=== PATIENT | female | born 1935 ===

== ENCOUNTER 2017-04-29 11:09 | Observation (INO) | payer MEDICARE, OTHER ==
[2017-04-29 11:10] VITALS: BMI 28.5
[2017-04-29] MEDS ORDERED: Albuterol-Ipratrop 3 mg / 0.5 (3 ml) UD ONE ×2 (11:27→13:37)
[2017-04-29] MEDS ORDERED: Albuterol-Ipratrop 3 mg / 0.5 (3 ml) UD INH STA ×2 (11:29→13:09)
--- NOTE | 2017-04-29 12:00 | C.PDOC ---
History Of Present Illness 81 y/o female with PMHx of Asthma, HTN, DM and Anxiety presents to ED with complaints of asthma exacerbation for 1 week with associated cough, mild throat pain, congestion and sob worse at night. Patient reports she is compliant with medication and denies fever, chest pain, abdominal pain, nausea, vomiting or any other complaints. Time Seen by Provider: 04/29/17 11:26 Chief Complaint (Nursing): Cough, Cold, Congestion History Per: Patient History/Exam Limitations: no limitations Onset/Duration Of Symptoms: Days Current Symptoms Are (Timing): Still Present Associated Symptoms: Cough, URI Past Medical History Reviewed: Historical Data, Nursing Documentation, Vital Signs Vital Signs: Last Vital Signs Temp 99.3 F 04/29/17 11:18 Pulse 86 04/29/17 11:18 Resp 24 04/29/17 11:18 BP 165/76 H 04/29/17 11:18 Pulse Ox 96 04/29/17 12:28 - Medical History PMH: Anxiety, Asthma, CHF (EF 40% per cardiac cath 02/2014), COPD, HTN, Hypercholesterolemia Surgical History: Tonsillectomy - [facility] Procedures CORONAR ARTERIOGR-2 CATH (12/03/13) LEFT HEART CARDIAC CATH (12/03/13) LT HEART ANGIOCARDIOGRAM (12/03/13) NEBULIZER THERAPY (12/08/13) Family History: States: No Known Family Hx - Social History Hx Tobacco Use: No Hx Alcohol Use: No Hx Substance Use: No - Immunization History Hx Tetanus Toxoid Vaccination: No Hx Influenza Vaccination: No Hx Pneumococcal Vaccination: Yes Review Of Systems Constitutional: Negative for: Fever, Chills ENT: Positive for: Nose Congestion, Throat Pain Respiratory: Positive for: Cough, Shortness of Breath Gastrointestinal: Negative for: Nausea, Vomiting, Abdominal Pain Skin: Negative for: Rash Physical Exam - Physical Exam Additional Physical Exam Comments: Patient evaluated after x1 neb treatment Constitutional: No acute distress. Anxious Appearing Head: Normocephalic. Atraumatic. Eyes: PERRL. EOMI. ENT: Moist mucous membranes. Neck: Supple. Cardiovascular: Regular rate and rhythm. DP pulse 2+ Chest: No tenderness. Respiratory: Expiratory wheezing GI: Soft. Nontender. Nondistended. Normoactive bowel sounds. No rebound. No guarding. Back: No CVA and no mid-line tenderness. Musculoskeletal: No tenderness or swelling of extremities. No pedal edema. No calf tenderness Skin: No rash. Neurologic: Alert, Speaking in full sentences. No focal deficits ED Course And Treatment - Laboratory Results Result Diagrams: 04/29/17 12:15 04/29/17 12:15 O2 Sat by Pulse Oximetry: 96 (RA) Pulse Ox Interpretation: Normal Medical Decision Making Medical Decision Making: As per home care attendant patient anxious at baseline worse when not feeling well, consistent with behavior at ED today when evaluated. Plan: Influenza Test, Blood work, CXR, ECG, Neb treatment [address] Rojas, will admit to her service. Disposition Discussed With .: Jarocho Rojas Doctor Will See Patient In The: Hospital - Disposition Disposition Time: 14:07 Condition: STABLE Forms: [facility] (Belgian) - Clinical Impression Clinical Impression: COPD exacerbation - PA / UNDERWRITING MANAGER / Resident Statement MD/DO has reviewed & agrees with the documentation as recorded. - Scribe Statement The provider has reviewed the documentation as recorded by the Scribbernadette Rhodes All medical record entries made by the Demarcusibbernadette were at my direction and personally dictated by me. I have reviewed the chart and agree that the record accurately reflects my personal performance of the history, physical exam, medical decision making, and the department course for this patient. I have also personally directed, reviewed, and agree with the discharge instructions and disposition.
[2017-04-29 12:18] LABS: BASO # 0.1 K/uL (0.0-0.2); BASO % 0.8 % (0.0-2.0); EOS # 0.2 K/uL (0.0-0.7); EOS % 2.4 % (0.0-4.0); HEMATOCRIT 31.6 % (34.0-47.0); LYMPH # 1.7 K/uL (1.0-4.3); LYMPH % 20.2 % (20.0-40.0); MEAN CELL VOLUME 79.4 fL (81.0-99.0); MEAN CORPUSCULAR HEMOGLOBIN 26.1 pg (27.0-31.0); MEAN CORPUSCULAR HGB CONC 32.9 g/dL (33.0-37.0); MONO # 0.8 K/uL (0.0-0.8); RED CELL DISTRIBUTION WIDTH 16.5 % (11.5-14.5); WHITE BLOOD COUNT 8.2 K/uL (4.8-10.8)
[2017-04-29 12:30] LABS: ALB/GLOB RATIO 1.3 (1.0-2.1); ALKALINE PHOSPHATASE 88 U/L (38-126); ALT/SGPT 17 U/L (9-52); AST/SGOT 26 U/L (14-36); BILIRUBIN,TOTAL 0.4 mg/dL (0.2-1.3); BLOOD UREA NITROGEN 18 mg/dL (7-17); CALCIUM 8.3 mg/dl (8.6-10.4); CARBON DIOXIDE 27 mmol/L (22-30); CHLORIDE 100 mmol/L (98-107); GFR AFRICAN-AMERICAN > 60; GLUCOSE,RANDOM 181 mg/dL (65-105); POTASSIUM 4.1 mmol/L (3.6-5.2); SODIUM 135 mmol/L (132-148); TOTAL PROTEIN 6.8 g/dL (6.3-8.3)
[2017-04-29] MEDS ORDERED: MethylPREDNISolone 40 mg Vial IVP STA (14:05)
--- NOTE | 2017-04-29 14:21 | CP.PCM.HP ---
History of Present Illness - History of Present Illness History of Present Illness: CC: "My asthma is getting worse" HPI: Mrs Desai is a 79 year old albanian speaking female who presented to the ER with persistent cough for 1 week that has been present during the day and night. She describes the sputum as white and non-bloody. She also endorsed feeling shortness of breath, mainly at night. Her symptoms have made it difficult for her to go to sleep. She used her advair diskus, albuterol, nebulizer and home oxygen but with minimal relief. She said she experiences similar symptoms 2 years ago when she was admitted to [facility]. She see's a Conference Concierge outpatient, Dr Casper (sp?), however it was unclear when the patient saw her last. She denies fever, recent travel, sick contacts, medication changes or diet changes. PMD: Dr. Acuna PMHx: COPD, CAD, Systolic CHF, DM, Asthma, HTN, Anxiety PSHx: Hysterectomy, Bladder Lift, Tonsillectomy, Cardiac Cath 02/2014 showing LCX 60-70% stenosis, RCA mid region 50% and distal region 60-70% stenosis, EF of 40% Allergies: NKDA Medications: Atorvastatin 40mg PO HS, Nexium 40mg PO QD, Singulair 10mg PoqHS, Cozaar 25mg PO Daily, Lantus 23 units qAM, 13 units qHS, Glipizide 5mg PO ACB, Plavix 75mg PO Daily, Duoneb, Home Oxygen FamHx: DM SocHx: > 40 Pack year Hx of smoking, Denies alcohol, Denies drugs Present on Admission - Present on Admission Any Indicators Present on Admission: No Review of Systems - Constitutional Constitutional: Headache. absent: Chills, Fever, Weight Loss - EENT Eyes: absent: Change in Vision - Cardiovascular Cardiovascular: absent: Chest Pain, Palpitations - Respiratory Respiratory: Cough, Dyspnea, Wheezing. absent: Pain on Inspiration - Gastrointestinal Gastrointestinal: absent: Abdominal Pain, Diarrhea, Nausea, Vomiting - Genitourinary Genitourinary: absent: Dysuria - Integumentary Integumentary: absent: Bleeding Lesions - Neurological Neurological: Dizziness - Psychiatric Psychiatric: Anxiety Past Patient History - Infectious Disease Hx of Infectious Diseases: None - Past Medical History & Family History Past Medical History?: Yes - Past Social History Smoking Status: Never Smoked - CARDIAC Hx Congestive Heart Failure: Yes (EF 40% per cardiac cath 02/2014) Hx Hypercholesterolemia: Yes Hx Hypertension: Yes - PULMONARY Hx Asthma: Yes Hx Chronic Obstructive Pulmonary Disease (COPD): Yes - NEUROLOGICAL Hx Neurological Disorder: No - HEENT Hx HEENT Problems: No - RENAL Hx Chronic Kidney Disease: No - ENDOCRINE/METABOLIC Hx Endocrine Disorders: Yes Hx Diabetes Mellitus Type 2: Yes - HEMATOLOGICAL/ONCOLOGICAL Hx Blood Disorders: No - INTEGUMENTARY Hx Dermatological Problems: No - MUSCULOSKELETAL/RHEUMATOLOGICAL Hx Musculoskeletal Disorders: No - GASTROINTESTINAL Hx Gastrointestinal Disorders: No - GENITOURINARY/GYNECOLOGICAL Hx Genitourinary Disorders: No - PSYCHIATRIC Hx Anxiety: Yes Hx Substance Use: No - SURGICAL HISTORY Hx Tonsillectomy: Yes - ANESTHESIA Hx Anesthesia: Yes Hx Anesthesia Reactions: No Hx Malignant Hyperthermia: No Meds Allergies/Adverse Reactions: Allergies Allergy/AdvReac Type Severity Reaction Status Date / Time No Known Allergies Allergy Verified 03/15/16 13:26 Physical Exam - Constitutional Appears: Non-toxic, No Acute Distress - Head Exam Head Exam: ATRAUMATIC, NORMAL INSPECTION - Eye Exam Eye Exam: EOMI, Normal appearance Pupil Exam: PERRL - ENT Exam ENT Exam: Mucous Membranes Moist - Neck Exam Neck exam: Positive for: Normal Inspection. Negative for: Lymphadenopathy, Tenderness - Respiratory Exam Respiratory Exam: Rhonchi, Wheezes - Cardiovascular Exam Cardiovascular Exam: REGULAR RHYTHM, +S1, +S2. absent: Bradycardia, Tachycardia , Irregular Rhythm, JVD, Systolic Murmur - GI/Abdominal Exam GI & Abdominal Exam: Normal Bowel Sounds, Soft. absent: Tenderness - Extremities Exam Extremities exam: Positive for: full ROM, normal capillary refill, normal inspection, pedal pulses present. Negative for: pedal edema - Neurological Exam Neurological exam: Alert, Oriented x3 - Psychiatric Exam Psychiatric exam: Anxious - Skin Skin Exam: Dry, Intact, Warm Results - Vital Signs Recent Vital Signs: Last Vital Signs Temp 99.3 F 04/29/17 11:18 Pulse 86 04/29/17 11:18 Resp 24 04/29/17 11:18 BP 165/76 H 04/29/17 11:18 Pulse Ox 96 04/29/17 14:07 - Labs Result Diagrams: 04/29/17 12:15 04/29/17 12:15 Labs: Laboratory Results - last 24 hr 04/29/17 04/29/17 04/29/17 11:50 12:15 12:15 WBC 8.2 RBC 3.98 Hgb 10.4 L Hct 31.6 L MCV 79.4 L D MCH 26.1 L MCHC 32.9 L RDW 16.5 H Plt Count 235 MPV 9.0 Neut % (Auto) 66.6 Lymph % (Auto) 20.2 [place] % (Auto) 10.0 Eos % (Auto) 2.4 Baso % (Auto) 0.8 Neut # 5.5 Lymph # 1.7 [place] # 0.8 Eos # 0.2 Baso # 0.1 Sodium 135 Potassium 4.1 Chloride 100 Carbon Dioxide 27 Anion Gap 13 BUN 18 H Creatinine 0.6 L Est GFR ( Amer) > 60 Est GFR (Non-Af Amer) > 60 Random Glucose 181 H Calcium 8.3 L Total Bilirubin 0.4 AST 26 ALT 17 Alkaline Phosphatase 88 Total Protein 6.8 Albumin 3.8 Globulin 3.0 Albumin/Globulin Ratio 1.3 Influenza Typ A,B (EIA) Negative for flu a/b Assessment & Plan (1) COPD exacerbation Assessment and Plan: Pulmonary consult, Dr Garrison Nava CXR 04/29: F/U official read Duoneb 3ml INH RQ4 Advair 1 puff INH RQ12 Methylprednisolone 40mg IV Q12H Nasal Cannula PRN Status: Acute Priority: High (2) Diabetes Assessment and Plan: At home patient is on Humalog 23 units SC qAM, 13 units SC qPM F/U HgbA1C Novolog 23u SC qAM, 13u SC qPM Glipizide SR 5mg PO ACB Sitagliptin 100mg PO QD Gabapentin 100mg PO HS for diabetic neuropathy Patient started on IV steroids so BS is expected to increase Status: Chronic Priority: Medium (3) Systolic CHF Assessment and Plan: Cardiac Cath 2013 showed EF of 40% F/U Pro-BNP No IV fluids being administered Status: Chronic Priority: Medium (4) Anxiety Assessment and Plan: Clonazepam 0.5mg PO HS Status: Chronic Priority: Medium (5) CAD (coronary artery disease) Assessment and Plan: Cardiac Cath 02/2014 showing LCX 60-70% stenosis, RCA mid region 50% and distal region 60-70% stenosis Plavix 75mg PO QD Status: Chronic Priority: Medium (6) Hypertension Assessment and Plan: Losartan 100mg PO QD Status: Chronic Priority: Medium (7) Vertigo Assessment and Plan: Meclizine 25mg PO Q12 PRN Status: Acute Priority: Medium (8) Prophylactic measure Assessment and Plan: Enoxaparin 40mg SC QD, SCD's Famotidine 20mg PO BID Status: Acute Priority: Low
[2017-04-29] MEDS ORDERED: MethylPREDNISolone 40 mg Vial IV SCH (15:00)
--- NOTE | 2017-04-29 15:41 | RAD ---
HISTORY: SOB COMPARISON: No prior. TECHNIQUE: Chest PA and lateral FINDINGS: LUNGS: No consolidation. The bronchovascular markings and interstitial markings appear borderline prominent -yet similar to prior 2016 study. PLEURA: No significant pleural effusion identified. No pneumothorax apparent. CARDIOVASCULAR: Mild cardiomegaly. Calcified aortic knob.The bronchovascular markings and interstitial markings appear borderline prominent -yet similar to prior 2016 study. OSSEOUS STRUCTURES: Thoracic spondylosis. Bilateral shoulder arthrosis VISUALIZED UPPER ABDOMEN: Normal. OTHER FINDINGS: None. IMPRESSION: No interval acute cardiopulmonary pathology noted.
[2017-04-29] MEDS: (Novolog Mix 70/30) Insulin Aspart/Insulin Aspar 100 units/ml SC SCH (17:07)
[2017-04-29] MEDS: MethylPREDNISolone 40 mg Vial IVP SCH (17:07)
[2017-04-29] MEDS: Albuterol-Ipratrop 3 mg / 0.5 (3 ml) UD INH SCH (19:07)
[2017-04-29] MEDS ORDERED: Fluticasone-Salmeterol 500-50mcg Diskus INH SCH (20:00)
[2017-04-29] MEDS ORDERED: NORTRIPTYLINE HYDROCHLORIDE PO SCH (22:00)
[2017-04-30] MEDS ORDERED: guaiFENesin-Codeine 100-10mg/5ml Syrup (10ml) UD PO ONE (01:47)
[2017-04-30] MEDS: Albuterol-Ipratrop 3 mg / 0.5 (3 ml) UD INH SCH ×4 (02:12→12:47)
[2017-04-30] MEDS ORDERED: GlipiZIDE 5 mg SR Tab PO SCH (07:30)
[2017-04-30] MEDS ORDERED: (Novolog Mix 70/30) Insulin Aspart/Insulin Aspar 100 units/ml SC SCH (08:00)
[2017-04-30 08:14] LABS: BASO % 0.4 % (0.0-2.0); HEMATOCRIT 28.6 % (34.0-47.0); LYMPH # 1.7 K/uL (1.0-4.3); LYMPH % 17.8 % (20.0-40.0); MEAN CELL VOLUME 79.2 fL (81.0-99.0); MEAN CORPUSCULAR HEMOGLOBIN 26.8 pg (27.0-31.0); MEAN CORPUSCULAR HGB CONC 33.8 g/dL (33.0-37.0); MEAN PLATELET VOLUME 9.4 fL (7.2-11.7); MONO # 0.6 K/uL (0.0-0.8); MONO % 6.5 % (0.0-10.0); RED CELL DISTRIBUTION WIDTH 15.9 % (11.5-14.5); WHITE BLOOD COUNT 9.5 K/uL (4.8-10.8)
[2017-04-30 08:39] LABS: ALKALINE PHOSPHATASE 86 U/L (38-126); ALT/SGPT 19 U/L (9-52); AST/SGOT 28 U/L (14-36); BILIRUBIN,TOTAL 0.4 mg/dL (0.2-1.3); BLOOD UREA NITROGEN 26 mg/dL (7-17); CALCIUM 8.4 mg/dl (8.6-10.4); CARBON DIOXIDE 27 mmol/L (22-30); CHLORIDE 99 mmol/L (98-107); GFR AFRICAN-AMERICAN > 60; GLUCOSE,RANDOM 292 mg/dL (65-105); POTASSIUM 4.1 mmol/L (3.6-5.2); SODIUM 131 mmol/L (132-148); TOTAL PROTEIN 7.4 g/dL (6.3-8.3)
[2017-04-30] MEDS: MethylPREDNISolone 40 mg Vial IVP SCH ×2 (09:56→17:28)
[2017-04-30] MEDS ORDERED: Enoxaparin 40 mg Syringe SC SCH (10:00)
[2017-04-30] MEDS ORDERED: Azithromycin 500 MG in Sodium Chloride 0.9% 250 ML IVPB SCH (10:00)
[2017-04-30 15:57] VITALS: BP 99/57; PULSE 74; RESP 20; TEMP 98.4; O2SAT 95
--- NOTE | 2017-04-30 16:29 | CP.PCM.DIS ---
Provider - Provider Date of Admission: 04/29/17 14:02 Attending physician: Jarocho Rojas MD Consults: Pulm - Dr. Jane Time Spent in preparation of Discharge (in minutes): 30 Hospital Course - Lab Results Lab Results: Most Recent Lab Values WBC 9.5 K/uL (4.8-10.8) 04/30/17 07:54 RBC 3.62 Mil/uL (3.80-5.20) L 04/30/17 07:54 Hgb 9.7 g/dL (11.0-16.0) L 04/30/17 07:54 Hct 28.6 % (34.0-47.0) L 04/30/17 07:54 MCV 79.2 fL (81.0-99.0) L 04/30/17 07:54 MCH 26.8 pg (27.0-31.0) L 04/30/17 07:54 MCHC 33.8 g/dL (33.0-37.0) 04/30/17 07:54 RDW 15.9 % (11.5-14.5) H 04/30/17 07:54 Plt Count 236 K/uL (130-400) 04/30/17 07:54 MPV 9.4 fL (7.2-11.7) 04/30/17 07:54 Neut % (Auto) 75.3 % (50.0-75.0) H 04/30/17 07:54 Lymph % (Auto) 17.8 % (20.0-40.0) L 04/30/17 07:54 [place] % (Auto) 6.5 % (0.0-10.0) 04/30/17 07:54 Eos % (Auto) 0.0 % (0.0-4.0) 04/30/17 07:54 Baso % (Auto) 0.4 % (0.0-2.0) 04/30/17 07:54 Neut # 7.1 K/uL (1.8-7.0) H 04/30/17 07:54 Lymph # 1.7 K/uL (1.0-4.3) 04/30/17 07:54 [place] # 0.6 K/uL (0.0-0.8) 04/30/17 07:54 Eos # 0.0 K/uL (0.0-0.7) 04/30/17 07:54 Baso # 0.0 K/uL (0.0-0.2) 04/30/17 07:54 Sodium 131 mmol/L (132-148) L 04/30/17 07:54 Potassium 4.1 mmol/L (3.6-5.2) 04/30/17 07:54 Chloride 99 mmol/L (98-107) 04/30/17 07:54 Carbon Dioxide 27 mmol/L (22-30) 04/30/17 07:54 Anion Gap 10 (10-20) 04/30/17 07:54 BUN 26 mg/dL (7-17) H 04/30/17 07:54 Creatinine 0.6 mg/dL (0.7-1.2) L 04/30/17 07:54 Est GFR ( Amer) > 60 04/30/17 07:54 Est GFR (Non-Af Amer) > 60 04/30/17 07:54 POC Glucose (mg/dL) 287 mg/dL (65-110) H 04/30/17 16:18 Random Glucose 292 mg/dL (65-105) H 04/30/17 07:54 Hemoglobin A1c 6.6 % (4.2-6.5) H 04/29/17 15:52 Calcium 8.4 mg/dl (8.6-10.4) L 04/30/17 07:54 Total Bilirubin 0.4 mg/dL (0.2-1.3) 04/30/17 07:54 AST 28 U/L (14-36) 04/30/17 07:54 ALT 19 U/L (9-52) 04/30/17 07:54 Alkaline Phosphatase 86 U/L (38-126) 04/30/17 07:54 NT-Pro-B Natriuret Pep 216 pg/mL (0-900) 04/29/17 15:52 Total Protein 7.4 g/dL (6.3-8.3) 04/30/17 07:54 Albumin 3.6 g/dL (3.5-5.0) 04/30/17 07:54 Globulin 3.8 gm/dL (2.2-3.9) 04/30/17 07:54 Albumin/Globulin Ratio 1.0 (1.0-2.1) 04/30/17 07:54 Influenza Typ A,B (EIA) Negative for flu a/b (NEGATIVE) 04/29/17 11:50 - Hospital Course Hospital Course: As per admission documentation HPI: Mrs Desai is a 79 year old hong konger speaking female who presented to the ER with persistent cough for 1 week that has been present during the day and night. She describes the sputum as white and non-bloody. She also endorsed feeling shortness of breath, mainly at night. Her symptoms have made it difficult for her to go to sleep. She used her advair diskus, albuterol, nebulizer and home oxygen but with minimal relief. She said she experiences similar symptoms 2 years ago when she was admitted to [facility]. She see's a Stock Lifter outpatient, Dr Casper (sp?), however it was unclear when the patient saw her last. She denies fever, recent travel, sick contacts, medication changes or diet changes. Hospital course Patient was admitted to the hospital for acute COPD exacerbation. Pulmonary consult, Dr. Jane. Patient was given breathing treatments and monitored overnight. CXR 04/29 - No interval acute cardiopulmonary pathology noted. Patient's vitals were stable throughout her hospital stay. Pro-BNP was 216. HgbA1c 6.6. Patient is appeared to be very anxious, but she stated this was her baseline. She stated that she would like to go back home because she felt "back to normal". Patient had no acute events throughout her hospital stay. (1) COPD exacerbation Assessment and Plan: Pulmonary consult, Dr Garrison Nava CXR 04/29: F/U official read Nasal Cannula PRN Meds: Duoneb 3ml INH RQ4 Advair 1 puff INH RQ12 Methylprednisolone 40mg IV Q12H Azithromycin 500mg IVPB QD Ceftriaxone 1g IVPB QD Status: Acute Priority: High (2) Diabetes Assessment and Plan: At home patient is on Humalog 23 units SC qAM, 13 units SC qPM F/U HgbA1C Patient started on IV steroids so BS is expected to increase Meds: Novolog 23u SC qAM, 13u SC qPM Glipizide SR 5mg PO ACB Sitagliptin 100mg PO QD Gabapentin 100mg PO HS for diabetic neuropathy Status: Chronic Priority: Medium (3) Systolic CHF Assessment and Plan: Cardiac Cath 2013 showed EF of 40% F/U Pro-BNP No IV fluids being administered Status: Chronic Priority: Medium (4) Anxiety Assessment and Plan: Clonazepam 0.5mg PO HS Status: Chronic Priority: Medium (5) CAD (coronary artery disease) Assessment and Plan: Cardiac Cath 02/2014 showing LCX 60-70% stenosis, RCA mid region 50% and distal region 60-70% stenosis Plavix 75mg PO QD Status: Chronic Priority: Medium (6) Hypertension Assessment and Plan: Losartan 100mg PO QD Status: Chronic Priority: Medium (7) Vertigo Assessment and Plan: Meclizine 25mg PO Q12 PRN Status: Acute Priority: Medium (8) Prophylactic measure Assessment and Plan: Enoxaparin 40mg SC QD, SCD's Famotidine 20mg PO BID Diabetic Consistent Carb Diet Status: Acute Priority: Low Discharge Instructions Patient is to be discharged home per Dr. Rojas. Patient is to follow up with her primary care physician within one week of being discharged from the hospital. If she does not have a primary care physician, patient is to follow up with the medical clinic in the [facility]. If the patient begins to experience any new or worsening symptoms, please go to the nearest hospital. Prescriptions Given: Azithromycin 500mg PO daily x 3 days Medrol Dose Pack (21 tabs) Discharge Exam - Head Exam Head Exam: ATRAUMATIC, NORMAL INSPECTION Discharge Plan - Discharge Medications Prescriptions: Azithromycin [Zithromax] 500 mg PO DAILY #3 tab Methylprednisolone [Medrol Dose Pack (21 tabs)] See Taper PO DAILY #21 mg - Follow Up Plan Condition: STABLE Disposition: HOME/ ROUTINE Instructions: Azithromycin (By mouth), Methylprednisolone (By mouth), Heart Failure (DC), Vertigo (DC), COPD (Chronic Obstructive Pulmonary Disease) (DC), Meal Planning with Diabetes Exchanges (DC) Additional Instructions: Patient is to be discharged home per Dr. Rojas. Patient is to follow up with her primary care physician within one week of being discharged from the hospital. If she does not have a primary care physician, patient is to follow up with the medical clinic in the [facility]. If the patient begins to experience any new or worsening symptoms, please go to the nearest hospital. Prescriptions Given: Azithromycin 500mg PO daily x 3 days Medrol Dose Pack (21 tabs) Referrals: Chilo Presley MD [Staff Provider] -
--- NOTE | 2017-04-30 17:01 | PCM.HF ---
Heart Failure Core Measure - Heart Failure Ejection Fraction: 40 % or Greater (EF >40%) NEERAJ Inhibitor Prescribed: No Angiotensin II Receptor Collette Prescribed: Yes
[2017-04-30] MEDS: (Novolog Mix 70/30) Insulin Aspart/Insulin Aspar 100 units/ml SC SCH (17:29)
== END 2017-04-30 18:25 | disposition home or self-care (01) ==
LOC: C.ER 11:09 → C.9E 14:02 → C.3T 14:50
PROVIDERS: ADMIT Internal Medicine; ATTEND Internal Medicine
DX: J44.1 Chronic obstructive pulmonary disease with (acute) exacerbation (principal); I50.22 Chronic systolic (congestive) heart failure; I25.10 Atherosclerotic heart disease of native coronary artery without angina pectoris; I11.0 Hypertensive heart disease with heart failure; J45.901 Unspecified asthma with (acute) exacerbation; Z87.891 Personal history of nicotine dependence; Z90.710 Acquired absence of both cervix and uterus; F41.9 Anxiety disorder, unspecified; E78.00 Pure hypercholesterolemia, unspecified; E11.40 Type 2 diabetes mellitus with diabetic neuropathy, unspecified
CPT/HCPCS: 36415; 71020; 80053; 82948; 83036; 83880; 85025; 87804; 94640; 96374; 99284; G0378; J0696; J1650; J2920

== ENCOUNTER 2017-12-16 22:19 | Emergency (ER) | payer MEDICARE, OTHER ==
[2017-12-16 22:20] VITALS: BMI 28.5
[2017-12-16 22:34] VITALS: O2SAT 96
--- NOTE | 2017-12-16 23:38 | C.PDOC ---
History Of Present Illness Patient presents to the ER after she slipped and fell off her sofa and hit her head. Patient is able to remember the event. Denies LOC, nausea, or vomiting. - HPI Time Seen by Provider: 12/16/17 23:18 Chief Complaint (Nursing): Trauma History Per: Patient History/Exam Limitations: no limitations Onset/Duration Of Symptoms: Hrs Injury Occurred (Timing): Just Before Arrival Location Of Injury: Left: Head Severity: Mild Pain Scale Rating Of: 2 Recent travel outside of the [place]: No Additional History Per: Family - Fall Fall:Prior To Injury: Slipped Past Medical History Reviewed: Historical Data, Nursing Documentation, Vital Signs Vital Signs: Last Vital Signs Temp 99.4 F 12/16/17 22:33 Pulse 85 12/16/17 22:33 Resp 18 12/16/17 22:33 BP 155/52 H 12/16/17 22:33 Pulse Ox 96 12/16/17 23:41 - Medical History PMH: Anxiety, Asthma, CHF (EF 40% per cardiac cath 02/2014), COPD, HTN, Hypercholesterolemia Denies: Chronic Kidney Disease, Sleep Apnea Surgical History: Tonsillectomy - [facility] Procedures CORONAR ARTERIOGR-2 CATH (12/03/13) LEFT HEART CARDIAC CATH (12/03/13) LT HEART ANGIOCARDIOGRAM (12/03/13) NEBULIZER THERAPY (12/08/13) Family History: States: No Known Family Hx - Social History Hx Tobacco Use: No Hx Alcohol Use: No Hx Substance Use: No - Immunization History Hx Tetanus Toxoid Vaccination: No Hx Influenza Vaccination: No Hx Pneumococcal Vaccination: Yes Review Of Systems Eyes: Negative for: Vision Change Cardiovascular: Negative for: Chest Pain, Palpitations Respiratory: Negative for: Cough, Shortness of Breath Gastrointestinal: Negative for: Nausea, Vomiting Skin: Positive for: Other (Hematoma) Neurological: Negative for: Weakness, Numbness, Altered Mental Status, Headache , Other (LOC) Psych: Negative for: Anxiety Physical Exam - Physical Exam Appears: Non-toxic, No Acute Distress Skin: Warm, Dry Head: Normacephalic, Other (Left parietal scalp hematoma) Eye(s): bilateral: Normal Inspection, PERRL, EOMI Oral Mucosa: Moist Neck: Trachea Midline, No Midline Cervical Tenderness, No Paracervical Tenderness, Supple Chest: Symmetrical, No Tenderness Cardiovascular: Rhythm Regular Respiratory: No Rales, No Rhonchi, No Wheezing Gastrointestinal/Abdominal: Soft, No Tenderness Back: No Vertebral Tenderness, No Paraspinal Tenderness Extremity: Normal ROM Neurological/Psych: Oriented x3 Gait: Steady ED Course And Treatment O2 Sat by Pulse Oximetry: 96 (Room air) Pulse Ox Interpretation: Normal Progress Note: Tylenol administered. CT head ordered. Reevaluation Time: 00:10 Reassessment Condition: Improved Disposition Counseled Patient/Family Regarding: Studies Performed, Diagnosis, Need For Followup - Disposition Referrals: Chilo Presley MD [Staff Provider] - Disposition: HOME/ ROUTINE Disposition Time: 00:11 Condition: FAIR Additional Instructions: Please return if symptoms recur Instructions: Minor Head Injury (DC), Contusion (DC) Forms: [employer] (Swedish) - Clinical Impression Clinical Impression: Fall, Minor head injury without loss of consciousness, Scalp hematoma - Scribe Statement The provider has reviewed the documentation as recorded by the Scribe Huang Ragsdale All medical record entries made by the Scribe were at my direction and personally dictated by me. I have reviewed the chart and agree that the record accurately reflects my personal performance of the history, physical exam, medical decision making, and the department course for this patient. I have also personally directed, reviewed, and agree with the discharge instructions and disposition.
[2017-12-17 00:27] VITALS: BP 127/58; PULSE 78; RESP 16; TEMP 97.6
--- NOTE | 2017-12-17 08:00 | CT ---
Date of service: 12/16/2017 PROCEDURE: CT HEAD WITHOUT CONTRAST. HISTORY: fall, left parietal hematoma COMPARISON: None available. TECHNIQUE: Axial computed tomography images were obtained through the head/brain without intravenous contrast. Radiation dose: Total exam DLP = 762 mGy-cm. This CT exam was performed using one or more of the following dose reduction techniques: Automated exposure control, adjustment of the mA and/or kV according to patient size, and/or use of iterative reconstruction technique. FINDINGS: HEMORRHAGE: No intracranial hemorrhage. BRAIN: No mass effect or edema. Scattered focal lucencies in the subcortical and periventricular white matter suggestive for chronic microvascular ischemic change. Punctate left basal ganglia lacunar infarct. VENTRICLES: Unremarkable. No hydrocephalus. CALVARIUM: Unremarkable. PARANASAL SINUSES: Unremarkable as visualized. No significant inflammatory changes. MASTOID AIR CELLS: Unremarkable as visualized. No inflammatory changes. OTHER FINDINGS: Left parietal scalp hematoma. IMPRESSION: Chronic microvascular ischemic changes. Left parietal scalp hematoma. If symptoms persists, consider correlation with MRI. These findings were preliminarily reported at 12:07 a.m. on 12/17/[address] Beni Hunt from [facility].
== END 2017-12-17 00:27 | disposition home or self-care (01) ==
LOC: SUPCPDRO 22:19 → C.ER 22:19
DX: S00.03XA Contusion of scalp, initial encounter (principal); W07.XXXA Fall from chair, initial encounter; Y92.008 Other place in unspecified non-institutional (private) residence as the place of occurrence of the external cause